=== PATIENT | female | born 1990 | race Caucasian/White ===

== ENCOUNTER 2018-03-30 14:37 | Emergency (ER) | END 2018-03-30 17:26 | disposition home or self-care (01) ==

== ENCOUNTER 2018-04-05 10:06 | Emergency (ER) | END 2018-04-05 12:45 | disposition home or self-care (01) ==

== ENCOUNTER 2018-05-02 08:51 | Emergency (ER) | END 2018-05-02 12:47 | disposition home or self-care (01) ==

== ENCOUNTER 2018-08-21 10:39 | Inpatient (IN) | payer OTHER ==
[~2018-08-21] VITALS: Ht 152.4 cm; Wt 74.7 kg
[~2018-08-21 10:39] MED LIST: ACET500C5 PO; DOXY1TAB3 PO; ELEC100080 PO; FAMO-96 PO; HYDR-3498 PO; METO10TA92 PO; NAPR-688 PO; ONDA4TAB35 PO
--- NOTE | 2018-08-21 13:21 | TRIAGE ---
OB Triage Datetime Report Generated by CPN: 08/21/2018 13:20 Datetime: 08/21/2018 10:44 Assessment Type: Triage Maternal Assessment Level of Consciousness: Fully Conscious DTR's/Clonus: DTRs 2+; No Clonus Headache: Denies Blurred Vision: No Respiratory Effort: Unlabored; Regular Rhythm; Equal Expansion Breath Sounds, Left: Clear and Equal Breath Sounds, Right: Clear and Equal Nausea/Vomiting: Denies RUQ Epigastric Pain: Denies Lower Extremities Edema: None Degree: None Upper Extremities Edema: None Degree: None Facial Edema: None Fall Risk Assessment History of Falling: (0) No Secondary Diagnosis: (0) No Ambulatory Aid: (0) Bedrest/Nurse Assist IV Therapy: (0) No Gait: (0) Normal/Bedrest/Immobile Mental Status: (0) Oriented to Own Ability Fall Score: 0 Fall Risk Score Definition: No Risk: No action required Datetime: 08/21/2018 10:43 EGA: 25.6 Datetime: 08/21/2018 10:40 Time of Arrival: 08/21/2018 10:40 Arrived By: Ambulatory Arrived From: Home Chief Complaint: PT CAME IN C/O UC'S SINCE MONDAY DENIES ANY OTHER PROBLEM ANS SHE STATED THAT SHE DIDNT CAME BECAUSE SHE THOUGHT THAT HER PAIN WAS GOING TO GO AWAY Movement: Present Contractions: Regular Time Contractions Began: 08/17/2018 12:00 Contractions: 5 MIN Rupture of Membranes: Denies Vaginal Discharge: Denies Recent Sexual Intercouse: Denies Abdominal Trauma: Not Applicable Additional Patient Complaints: NONE Time Provider Notified: 08/21/2018 10:43 Provider Notified: ASHLEY
--- NOTE | 2018-08-21 13:36 | HP ---
Date/Time of Note Date/Time of Note DATE: 08/21/18 TIME: 13:34 OB - History Hx of Present Free Text/Dictation @25+wsk GA with Right CVA tenderness and pelvic and back pain : 3 Para: 1 Care: Good Care Ultrasounds: Normal mid trimester US Obstetrical Complications: None Medical Complications: None Past Family/Social History * Past Medical, Surgical, Family and Obstetric Histories reviewed from chart. OB Admission Exam Physical Exam Abdomen: WNL Extremities: Normal Cervical Dilatation: None Effacement: 0% Membranes: Intact Heart Rate: 140's Accelerations: Accelerations Present Decelerations: No Decelerations Varibility: Moderate Contractions on Admission: None OB Assessment/Plan Reason for admission: observation Plan: Expectant Management Other plan: Ancef IV hydration Close monitoring Pain management will follow up on the patient OSCAR MERINO M.D. Aug 21, 2018 13:36
[2018-08-21] MEDS ORDERED: CEFAZOLIN 2 GM/50 ML (PMX) 50 ML IVPB SCH (14:00)
[2018-08-21] MEDS ORDERED: ONDANSETRON 4 MG INJ IV PRN (14:00)
[2018-08-21] MEDS: ACETAMINOPHEN 325 MG TAB PO PRN ×2 (14:12→22:35)
[2018-08-21] MEDS: LACTATED RINGER'S 1,000 ML IV SCH ×2 (14:43→21:15)
[2018-08-21] MEDS: CEFAZOLIN 2 GM/50 ML (PMX) 50 ML IVPB SCH (22:31)
[2018-08-22] MEDS: LACTATED RINGER'S 1,000 ML IV SCH ×2 (05:36→14:08)
[2018-08-22] MEDS: CEFAZOLIN 2 GM/50 ML (PMX) 50 ML IVPB SCH ×3 (05:36→22:35)
[2018-08-22] MEDS: FERROUS SULFATE (EC) 325 MG TAB PO SCH (08:13)
[2018-08-22] MEDS: PRENATAL VITAMIN PO SCH (08:13)
[2018-08-22] MEDS: ACETAMINOPHEN 325 MG TAB PO PRN ×2 (08:13→14:08)
--- NOTE | 2018-08-22 12:27 | QN ---
Documentation Comment patient seen and evaluated complains of left flank pain which has improved since admission vs stable afebrile ab gravid nt left cva tenderness extremity no edema no calf tenderness a/ iup at 25 wks ga, admitted for uti currently on antibiotic p/ renal sono today f/u urine culture DARIAN RAMIREZ MD Aug 22, 2018 12:27
[2018-08-23] MEDS: LACTATED RINGER'S 1,000 ML IV SCH ×2 (00:41→09:19)
[2018-08-23] MEDS: CEFAZOLIN 2 GM/50 ML (PMX) 50 ML IVPB SCH ×2 (06:10→14:13)
[2018-08-23] MEDS: FERROUS SULFATE (EC) 325 MG TAB PO SCH (09:17)
[2018-08-23] MEDS: PRENATAL VITAMIN PO SCH (09:17)
--- NOTE | 2018-08-23 13:38 | QN ---
Documentation Comment patient seen and evaluated no complaints vs stable afebrile ab gravid nt extremity no edema no calf tenderness a/ iup at 25 wks ga, admitted for uti/ bl hydronephrosis, improved since admission p/ discharge home today wtih DARIAN Quintanilla MD Aug 23, 2018 13:38
--- NOTE | 2018-08-23 18:04 | DS ---
DATE OF ADMISSION: 08/21/2018 DATE OF DISCHARGE: 08/23/2018 PRIMARY DIAGNOSES: 1. Intrauterine at 25 weeks' gestational age. 2. Urinary tract infection. 3. Bilateral hydronephrosis. 4. Undelivered. PROCEDURE: None. CONDITION ON DISCHARGE: Stable. ACTIVITY: As tolerated. DIET: Regular. MEDICATIONS ON DISCHARGE: Keflex 500 mg p.o. t.i.d., #21. DISCHARGE SUMMARY: Ms. Kylee Kat was admitted on 08/21/2018 secondary to flank pain and symptoms of urinary tract infection. She was started on Ancef for antibiotics and she received a renal ultra sound with findings of bilateral hydronephrosis. Her urine culture came back with gram-positive orga nisms. She will be discharged on the above medications and follow up in the office in 1 week. Dictated By: DARIAN ALFREDO/GARRETT Conf#: [id number] DID#: [id number]
== END 2018-08-23 15:35 | disposition home or self-care (01) | DRG 832 ==
LOC: L-D 10:39 → OBT 10:39 → L-D 13:11 → OBT 13:36 → PP1 08-22 01:03
PROVIDERS: ADMIT Obstetrics & Gynecology; ATTEND Obstetrics & Gynecology
DX: O23.42 Unspecified infection of urinary tract in pregnancy, second trimester (principal); N13.30 Unspecified hydronephrosis; O99.89 Other specified diseases and conditions complicating pregnancy, childbirth and the puerperium; Z3A.25 25 weeks gestation of pregnancy
CPT/HCPCS: 76775; 76815; 76817; 80053; 81001; 81003; 85025; 87086; G0463; J0690; J2405; J7120

== ENCOUNTER 2018-09-26 14:50 | Outpatient (CLI) | payer OTHER ==
[~2018-09-26] VITALS: Ht 152.4 cm; Wt 77.5 kg
[2018-09-26 15:24] VITALS: BP 111/70; PULSE 92; Ht 152.4 cm; Wt 77.5 kg
[2018-09-26] MEDS ORDERED: PNV11TAB PO (15:26)
--- NOTE | 2018-09-26 17:08 | PN ---
Triage Information Date/Time Reason for visit: Abd/pelvic pain Weeks of Gestation 31 weeks /Para -0-0-1 Diabetes: none Hypertention: none Objective Vital Signs Date Temp Pulse Resp B/P (MAP) Pulse Ox O2 O2 Flow FiO2 Time Delivery Rate 09/26/18 98.2 92 111/70 15:24 (84) Heart Rate: 130's Contractions: None Results/Medications Results 24 hrs Laboratory Tests Test 09/26/18 15:30 Urine Color YELLOW Urine Clarity SLIGHTLY CLOUDY A Urine pH 7.0 Urine Specific [place] 1.023 Urine Ketones NEGATIVE Urine Nitrite NEGATIVE Urine Bilirubin NEGATIVE Urine Urobilinogen NEGATIVE Urine Leukocyte Esterase NEGATIVE Urine Microscopic RBC 0 Urine Microscopic WBC 2 Urine Squamous Epithelial Cells FEW Urine Mucus FEW A Urine Hemoglobin NEGATIVE Urine Glucose NEGATIVE Urine Total Protein NEGATIVE Disposition: Discharge Assessment/Plan 28 years old 2 para 1-0-0-1 with single intrauterine at 31 weeks with a NAVARRO of 11/28/2018 complaining of abdominal pain. She states good movement. She denies nausea, vomiting, shortness of breath, chest pain, headache, visual changes, vaginal bleeding or LOF. -FHR: No sign of metabolic acidosis- Category I -Contractions: None -Unremarkable exam -Normal urinalysis -Ultrasound performed: Normal CLOVER-16 -Symptoms and sign of labor, preeclampsia, kick count discussed with patient, she voiced understanding. All of her questions answered. -Patient was discharged home in stable condition with the appropriate discharge instructions provided. I would like patient to have close follow-up with her primary physician or outpatient clinic in 1-2 days or return to triage for worsening symptoms or any other urgent concerns. INDRA EDMONDS September 26, 2018 17:08
--- NOTE | 2018-09-26 17:43 | TRIAGE ---
OB Triage Datetime Report Generated by CPN: 09/26/2018 17:43 Datetime: 09/26/2018 16:35 Stage of : OB Triage Datetime: 09/26/2018 16:21 Labor Evaluation Frequency: X2 Monitor Mode: External Duration (sec)2399: 50-60 Quality: Mild Pattern: Normal: <= 5 Contractions in 10 Minutes Resting Tone Panaca: Relaxed Heart Rate FHR Baseline Rate: 135 Monitor Mode: External US Variability: Moderate 6-25 bpm Accelerations: 10X10 Decelerations: None Category: Category I Pain Assessment Pain Scale: 5 Pain Presence: Intermittent Pain Type: Ache Pain Location: Back Pain Goal: 3 Pain Relief Measures: Comfort Measures Datetime: 09/26/2018 15:52 Stage of : OB Triage Datetime: 09/26/2018 15:20 Stage of : OB Triage Assessment Type: Triage Maternal Assessment Level of Consciousness: Fully Conscious DTR's/Clonus: DTRs 2+; No Clonus Blurred Vision: No Respiratory Effort: Unlabored; Regular Rhythm; Equal Expansion Breath Sounds, Left: Clear and Equal Breath Sounds, Right: Clear and Equal Nausea/Vomiting: Denies RUQ Epigastric Pain: Denies Facial Edema: None Temperature Route: Axillary Fall Risk Assessment History of Falling: (0) No Secondary Diagnosis: (0) No Ambulatory Aid: (0) Bedrest/Nurse Assist IV Therapy: (0) No Gait: (0) Normal/Bedrest/Immobile Mental Status: (0) Oriented to Own Ability Fall Score: 0 Fall Risk Score Definition: No Risk: No action required Labor Evaluation Frequency: X1 Monitor Mode: External Duration (sec)2399: 50 Quality: Mild Pattern: Normal: <= 5 Contractions in 10 Minutes Resting Tone Panaca: Relaxed Heart Rate FHR Baseline Rate: 140 Monitor Mode: External US Variability: Moderate 6-25 bpm Accelerations: 10X10 Decelerations: None Category: Category I Pain Assessment Pain Scale: 8 Pain Presence: Intermittent Pain Type: Cramping Pain Location: Abdomen; Back Pain Goal: 3 Pain Relief Measures: Comfort Measures Datetime: 09/26/2018 15:19 Time of Arrival: 09/26/2018 14:45 EGA: 31.0 Arrived By: Ambulatory Chief Complaint: C/O ABDOMINAL PAIN SINCE THIS MORNING, DENIES BLEEDING OR LEAKING Movement: Present Contractions: Denies/Absent Rupture of Membranes: Denies Vaginal Bleeding: None Vaginal Discharge: Denies Recent Sexual Intercouse: Denies Abdominal Trauma: Not Applicable Patient Complaints: Cramping; Back Pain; Headache Time Provider Notified: 09/26/2018 15:52 Provider Notified: HADADIAN Initial Plan: MONITOR, u/a c_s, edil Datetime: 08/23/2018 10:05 Pattern: Normal: <= 5 Contractions in 10 Minutes Resting Tone Panaca: Relaxed Contraction Comments: no uc Heart Rate FHR Baseline Rate: 135 Monitor Mode: External US Variability: Moderate 6-25 bpm Accelerations: 15X15 Decelerations: None Category: Category I Comments: reactive nst Pain Presence: None/Denies Pain Type: N/A Datetime: 08/23/2018 07:40 Assessment Type: Ongoing Assessment Maternal Assessment Level of Consciousness: Fully Conscious DTR's/Clonus: DTRs 2+; No Clonus Headache: Denies Blurred Vision: No Respiratory Effort: Unlabored; Regular Rhythm; Equal Expansion Breath Sounds, Left: Clear and Equal Breath Sounds, Right: Clear and Equal Nausea/Vomiting: Denies RUQ Epigastric Pain: Denies Lower Extremities Edema: None Degree: None Upper Extremities Edema: None Degree: None Facial Edema: None Fall Risk Assessment History of Falling: (0) No Secondary Diagnosis: (0) No Ambulatory Aid: (0) Bedrest/Nurse Assist IV Therapy: (20) Yes Gait: (0) Normal/Bedrest/Immobile Mental Status: (0) Oriented to Own Ability Fall Score: 20 Fall Risk Score Definition: No Risk: No action required Datetime: 08/23/2018 07:24 Stage of : Antepartum Datetime: 08/23/2018 06:07 Stage of : Antepartum Temperature Route: Oral Pain Assessment Pain Scale: 0 Pain Presence: None/Denies Pain Goal: 0 Datetime: 08/23/2018 00:37 Stage of : Antepartum Temperature Route: Oral Pain Assessment Pain Scale: 0 Pain Presence: None/Denies Pain Goal: 0 Datetime: 08/22/2018 22:32 Labor Evaluation Frequency: none Monitor Mode: External Resting Tone Panaca: Relaxed Heart Rate FHR Baseline Rate: 135 Monitor Mode: External US FHR Baseline Changes: No Baseline Change Variability: Moderate 6-25 bpm Accelerations: 15X15 Decelerations: Variable Comments: FHR appropriate for GA. FHR reassuring. EFM off. Datetime: 08/22/2018 21:04 Assessment Type: Ongoing Assessment Maternal Assessment Level of Consciousness: Fully Conscious DTR's/Clonus: DTRs 2+; No Clonus Headache: Denies Blurred Vision: No Respiratory Effort: Unlabored; Regular Rhythm; Equal Expansion Breath Sounds, Left: Clear and Equal Breath Sounds, Right: Clear and Equal Nausea/Vomiting: Denies RUQ Epigastric Pain: Denies Lower Extremities Edema: None Degree: None Upper Extremities Edema: None Degree: None Facial Edema: None Fall Risk Assessment History of Falling: (0) No Secondary Diagnosis: (0) No Ambulatory Aid: (0) Bedrest/Nurse Assist IV Therapy: (20) Yes Gait: (0) Normal/Bedrest/Immobile Mental Status: (0) Oriented to Own Ability Fall Score: 20 Fall Risk Score Definition: No Risk: No action required Datetime: 08/22/2018 21:02 Stage of : Antepartum Temperature Route: Oral Pain Assessment Pain Scale: 0 Pain Presence: None/Denies Pain Goal: 0 Datetime: 08/22/2018 21:01 Comments: EFM on. +FM noted. Datetime: 08/22/2018 18:02 Stage of : Antepartum Maternal Assessment Level of Consciousness: Fully Conscious Headache: Denies Nausea/Vomiting: Denies RUQ Epigastric Pain: Denies Labor Evaluation Frequency: 0/hr Resting Tone Panaca: Relaxed Pain Presence: Constant Vaginal Bleeding: None Datetime: 08/22/2018 17:06 Stage of : Antepartum Maternal Assessment Level of Consciousness: Fully Conscious Headache: Denies Nausea/Vomiting: Denies RUQ Epigastric Pain: Denies Labor Evaluation Frequency: 0/hr Resting Tone Panaca: Relaxed Pain Assessment Pain Scale: 1 Pain Presence: Constant Vaginal Bleeding: None Datetime: 08/22/2018 16:51 Pain Assessment Pain Scale: 1 Pain Presence: Constant Pain Assessment Comments: pt. states tylenol is effective for rt. flank pain Datetime: 08/22/2018 16:02 Stage of : Antepartum Maternal Assessment Level of Consciousness: Fully Conscious Headache: Denies Nausea/Vomiting: Denies RUQ Epigastric Pain: Denies Labor Evaluation Frequency: 0/hr Resting Tone Panaca: Relaxed Pain Assessment Pain Scale: 1 Pain Presence: Constant Vaginal Bleeding: None Datetime: 08/22/2018 15:30 Stage of : Antepartum Maternal Assessment Level of Consciousness: Fully Conscious Headache: Denies Nausea/Vomiting: Denies RUQ Epigastric Pain: Denies Labor Evaluation Frequency: 0/hr Resting Tone Panaca: Relaxed Pain Assessment Pain Scale: 1 Pain Presence: Constant Vaginal Bleeding: None Datetime: 08/22/2018 14:31 Pain Assessment Pain Scale: 2 Pain Presence: Constant Pain Relief Measures: Comfort Measures Datetime: 08/22/2018 14:00 Pain Assessment Pain Scale: 5 Pain Presence: Constant Pain Location: Right Flank Pain Relief Measures: Pain Medication Given Datetime: 08/22/2018 13:00 Stage of : Antepartum Maternal Assessment Level of Consciousness: Fully Conscious Headache: Denies Nausea/Vomiting: Denies RUQ Epigastric Pain: Denies Labor Evaluation Frequency: 0/hr Resting Tone Panaca: Relaxed Pain Assessment Pain Scale: 1 Pain Presence: Constant Vaginal Bleeding: None Datetime: 08/22/2018 12:00 Stage of : Antepartum Maternal Assessment Level of Consciousness: Fully Conscious Headache: Denies Nausea/Vomiting: Denies RUQ Epigastric Pain: Denies Labor Evaluation Frequency: 0/hr Resting Tone Panaca: Relaxed Contraction Comments: pt. denies uc's Comments: pt. acknowledges movement Pain Assessment Pain Scale: 1 Pain Presence: Constant Pain Type: Ache Pain Location: Right Flank Pain Relief Measures: Comfort Measures Vaginal Bleeding: None Datetime: 08/22/2018 11:52 Maternal Assessment Level of Consciousness: Fully Conscious Headache: Denies Blurred Vision: No Respiratory Effort: Unlabored Nausea/Vomiting: Denies RUQ Epigastric Pain: Denies Pain Presence: None/Denies Datetime: 08/22/2018 11:17 Pain Presence: None/Denies Datetime: 08/22/2018 11:02 Stage of : Antepartum Labor Evaluation Frequency: occassional Monitor Mode: External Duration (sec)2399: 60 Quality: Mild Heart Rate FHR Baseline Rate: 125 Monitor Mode: External US Variability: Moderate 6-25 bpm Accelerations: 15X15 Decelerations: None Datetime: 08/22/2018 10:21 Monitor Mode: External Resting Tone Panaca: Relaxed Monitor Mode: External US Datetime: 08/22/2018 10:20 Pain Presence: Constant Pain Type: Ache Pain Location: Right Flank Pain Assessment Comments: pt. states she is comfortable and talking on her cellphone Datetime: 08/22/2018 10:11 Stage of : Antepartum Maternal Assessment Level of Consciousness: Fully Conscious Headache: Denies Nausea/Vomiting: Denies RUQ Epigastric Pain: Denies Resting Tone Panaca: Relaxed Pain Assessment Pain Scale: 1 Pain Presence: Constant Pain Type: Dull Pain Location: Right Flank Pain Relief Measures: Comfort Measures Vaginal Bleeding: None Datetime: 08/22/2018 09:36 Maternal Assessment Level of Consciousness: Fully Conscious Headache: Denies Blurred Vision: No Respiratory Effort: Unlabored Nausea/Vomiting: Denies RUQ Epigastric Pain: Denies Pain Assessment Pain Scale: 1 Pain Presence: Constant Pain Location: Right Flank Pain Assessment Comments: pt. states tylenol effective for pain Datetime: 08/22/2018 09:03 Stage of : Antepartum Resting Tone Panaca: Relaxed Contraction Comments: 0/hr per pt. Datetime: 08/22/2018 08:14 Nausea/Vomiting: Hx of Nausea/Vomiting Datetime: 08/22/2018 07:29 Breath Sounds, Left: Clear and Equal Breath Sounds, Right: Clear and Equal Pain Location: Right Flank Datetime: 08/22/2018 07:28 Maternal Assessment Level of Consciousness: Fully Conscious Headache: Denies Blurred Vision: No Respiratory Effort: Unlabored Nausea/Vomiting: Hx of Nausea/Vomiting RUQ Epigastric Pain: Denies Pain Assessment Pain Scale: 7 Pain Presence: Constant Pain Location: Back Datetime: 08/22/2018 07:10 Stage of : Antepartum Assessment Type: Ongoing Assessment Respiratory Effort: Unlabored Pain Assessment Comments: pt. states pain 7/10 rt. side cva, pt. states she "threw up" tylenol give n in triage. iv infusing Datetime: 08/22/2018 05:38 Stage of : Antepartum Maternal Assessment Level of Consciousness: Fully Conscious Headache: Denies Blurred Vision: No Temperature Route: Oral Pain Presence: None/Denies (Annotations: PT DENIES ANY DISCOMFORT OR FEELING ANY UC'S,STATED BABY M OVING.) Datetime: 08/22/2018 01:17 Stage of : Antepartum Temperature Route: Oral Datetime: 08/22/2018 00:57 Stage of : Antepartum Datetime: 08/21/2018 22:36 Temperature Route: Oral Pain Assessment Pain Scale: 10 Pain Presence: Constant Pain Type: Pressure Pain Location: Head Pain Goal: 0 Pain Relief Measures: Pain Medication Given Datetime: 08/21/2018 21:23 Labor Evaluation Frequency: none Monitor Mode: External Resting Tone Panaca: Relaxed Heart Rate FHR Baseline Rate: 150 Monitor Mode: External US FHR Baseline Changes: No Baseline Change Variability: Moderate 6-25 bpm Accelerations: 15X15 Decelerations: None Comments: NST reassuring and appropriate for GA. +FM noted. EFM off. Datetime: 08/21/2018 21:02 Assessment Type: Ongoing Assessment Maternal Assessment Level of Consciousness: Fully Conscious DTR's/Clonus: DTRs 2+; No Clonus Headache: Denies Blurred Vision: No Respiratory Effort: Unlabored; Regular Rhythm; Equal Expansion Breath Sounds, Left: Clear and Equal Breath Sounds, Right: Clear and Equal Nausea/Vomiting: Denies RUQ Epigastric Pain: Denies Lower Extremities Edema: None Degree: None Upper Extremities Edema: None Degree: None Facial Edema: None Fall Risk Assessment History of Falling: (0) No Secondary Diagnosis: (0) No Ambulatory Aid: (0) Bedrest/Nurse Assist IV Therapy: (20) Yes Gait: (0) Normal/Bedrest/Immobile Mental Status: (0) Oriented to Own Ability Fall Score: 20 Fall Risk Score Definition: No Risk: No action required Datetime: 08/21/2018 21:00 Comments: EFM on. +FM noted. Datetime: 08/21/2018 20:55 Stage of : Antepartum Temperature Route: Oral Pain Assessment Pain Scale: 0 Pain Presence: None/Denies Pain Goal: 0 Datetime: 08/21/2018 18:53 Labor Evaluation Frequency: 0 Monitor Mode: External Heart Rate FHR Baseline Rate: 145 Monitor Mode: External US FHR Baseline Changes: No Baseline Change Variability: Moderate 6-25 bpm Accelerations: 15X15 Decelerations: None Category: Category I Datetime: 08/21/2018 18:00 Labor Evaluation Frequency: 0 Monitor Mode: External Heart Rate FHR Baseline Rate: 140 Monitor Mode: External US FHR Baseline Changes: No Baseline Change Variability: Moderate 6-25 bpm Accelerations: 15X15 Decelerations: None Category: Category I Datetime: 08/21/2018 17:00 Labor Evaluation Frequency: 0 Monitor Mode: External Heart Rate FHR Baseline Rate: 140 Monitor Mode: External US FHR Baseline Changes: No Baseline Change Variability: Moderate 6-25 bpm Accelerations: 15X15 Decelerations: None Category: Category I Datetime: 08/21/2018 16:00 Labor Evaluation Frequency: 0 Monitor Mode: External Heart Rate FHR Baseline Rate: 135 Monitor Mode: External US FHR Baseline Changes: No Baseline Change Variability: Moderate 6-25 bpm Accelerations: 15X15 Decelerations: None Category: Category I Datetime: 08/21/2018 15:00 Labor Evaluation Frequency: 0 Monitor Mode: External Heart Rate FHR Baseline Rate: 135 Monitor Mode: External US FHR Baseline Changes: No Baseline Change Variability: Moderate 6-25 bpm Accelerations: 15X15 Decelerations: None Category: Category I Datetime: 08/21/2018 14:12 Assessment Type: Admission Assessment Vaginal Bleeding: None Maternal Assessment Level of Consciousness: Fully Conscious DTR's/Clonus: DTRs 2+; No Clonus Headache: Generalized Blurred Vision: No Respiratory Effort: Unlabored; Regular Rhythm; Equal Expansion Breath Sounds, Left: Clear and Equal Breath Sounds, Right: Clear and Equal Nausea/Vomiting: Denies RUQ Epigastric Pain: Denies Lower Extremities Edema: None Degree: None Upper Extremities Edema: None Facial Edema: None Fall Risk Assessment History of Falling: (0) No Secondary Diagnosis: (0) No Ambulatory Aid: (0) Bedrest/Nurse Assist IV Therapy: (20) Yes Gait: (0) Normal/Bedrest/Immobile Mental Status: (0) Oriented to Own Ability Fall Score: 20 Fall Risk Score Definition: No Risk: No action required Pain Assessment Pain Scale: 6 Pain Presence: Constant Pain Type: Pressure Pain Location: Back Pain Goal: 0 Datetime: 08/21/2018 14:00 Labor Evaluation Frequency: 0 Monitor Mode: External Heart Rate FHR Baseline Rate: 135 Monitor Mode: External US FHR Baseline Changes: No Baseline Change Variability: Moderate 6-25 bpm Accelerations: 15X15 Decelerations: None Category: Category I Datetime: 08/21/2018 13:38 Stage of : Antepartum Datetime: 08/21/2018 13:00 Stage of : OB Triage Maternal Assessment Level of Consciousness: Fully Conscious DTR's/Clonus: DTRs 1+ Headache: Denies Nausea/Vomiting: Denies RUQ Epigastric Pain: Denies Labor Evaluation Frequency: NONE Monitor Mode: External Resting Tone Panaca: Relaxed Heart Rate FHR Baseline Rate: 135 Monitor Mode: External US Variability: Moderate 6-25 bpm Accelerations: 15X15 Decelerations: None Category: Category I Pain Assessment Pain Scale: 7 Pain Presence: Intermittent Pain Type: Cramping Pain Location: Back Pain Goal: 3 Vaginal Exam Membrane Status: Intact Datetime: 08/21/2018 12:37 Maternal Assessment Level of Consciousness: Fully Conscious DTR's/Clonus: DTRs 1+ Headache: Denies Blurred Vision: No Nausea/Vomiting: Denies RUQ Epigastric Pain: Denies Facial Edema: None Labor Evaluation Frequency: NONE Monitor Mode: External Resting Tone Panaca: Relaxed Heart Rate FHR Baseline Rate: 135 Monitor Mode: External US Variability: Moderate 6-25 bpm Accelerations: 15X15 Decelerations: None Category: Category I Pain Assessment Pain Scale: 7 Pain Presence: Intermittent Pain Type: Cramping Pain Location: Back Pain Goal: 3 Vaginal Exam Membrane Status: Intact Datetime: 08/21/2018 12:00 Stage of : OB Triage Maternal Assessment Level of Consciousness: Fully Conscious DTR's/Clonus: DTRs 1+ Headache: Denies Nausea/Vomiting: Denies RUQ Epigastric Pain: Denies Labor Evaluation Frequency: NONE Monitor Mode: External Resting Tone Panaca: Relaxed Heart Rate FHR Baseline Rate: 135 Monitor Mode: External US Variability: Moderate 6-25 bpm Accelerations: 15X15 Decelerations: None Category: Category I Pain Assessment Pain Scale: 7 Pain Presence: Intermittent Pain Type: Cramping Pain Location: Back Pain Goal: 3 Vaginal Exam Membrane Status: Intact Datetime: 08/21/2018 11:00 Stage of : OB Triage Maternal Assessment Level of Consciousness: Fully Conscious DTR's/Clonus: DTRs 1+ Headache: Denies Nausea/Vomiting: Denies RUQ Epigastric Pain: Denies Labor Evaluation Frequency: NONE Monitor Mode: External Resting Tone Panaca: Relaxed Heart Rate FHR Baseline Rate: 135 Monitor Mode: External US Variability: Moderate 6-25 bpm Accelerations: 15X15 Decelerations: None Pain Assessment Pain Scale: 7 Pain Presence: Intermittent Pain Type: Cramping Pain Location: Back Pain Goal: 3 Vaginal Exam Membrane Status: Intact Datetime: 08/21/2018 10:44 Fall Score: 0 Fall Risk Score Definition: No Risk: No action required Datetime: 08/21/2018 10:43 Time of Arrival: 08/21/2018 13:45 EGA: 25.6 Arrived By: Ambulatory Arrived From: Home
== END 2018-09-26 16:50 | disposition home or self-care (01) ==
LOC: OBT 14:50 → L-D 14:50 → OBT 16:50
PROVIDERS: ATTEND Obstetrics & Gynecology
DX: O26.893 Other specified pregnancy related conditions, third trimester (principal); Z3A.31 31 weeks gestation of pregnancy; R10.2 Pelvic and perineal pain
CPT/HCPCS: 76815; 81001; 87086; Z7500; 81003; G0463

== ENCOUNTER 2018-10-26 11:15 | Outpatient (CLI) | payer OTHER ==
[~2018-10-26] VITALS: Ht 152.4 cm; Wt 81.1 kg
[~2018-10-26 11:15] MED LIST changes: -ACET500C5 PO; -DOXY1TAB3 PO; -ELEC100080 PO; -FAMO-96 PO; -HYDR-3498 PO; -METO10TA92 PO; -NAPR-688 PO; -ONDA4TAB35 PO; +PNV11TAB PO
[2018-10-26 11:41] VITALS: BP 115/78; PULSE 80; RESP 18; Ht 152.4 cm; Wt 81.1 kg
[2018-10-26] MEDS ORDERED: TERBUTALINE 1 MG/ML INJ SC ONE (12:00)
[2018-10-26] MEDS ORDERED: LACTATED RINGER'S 1,000 ML IV SCH (12:00)
[2018-10-26] MEDS ORDERED: ACETAMINOPHEN 325 MG TAB PO ONE (12:30)
--- NOTE | 2018-10-26 18:11 | TRIAGE ---
OB Triage Datetime Report Generated by CPN: 10/26/2018 18:11 Datetime: 10/26/2018 15:55 Stage of : OB Triage Datetime: 10/26/2018 15:40 Labor Evaluation Frequency: 0 Monitor Mode: External Pattern: Normal: <= 5 Contractions in 10 Minutes Resting Tone [place]: Relaxed Heart Rate FHR Baseline Rate: 135 Monitor Mode: External US Variability: Moderate 6-25 bpm Accelerations: 10X10 Decelerations: None Category: Category I Pain Assessment Pain Scale: 0 Pain Presence: None/Denies Pain Type: N/A Pain Goal: 3 Pain Relief Measures: Comfort Measures Datetime: 10/26/2018 14:28 Labor Evaluation Frequency: 0 Monitor Mode: External Pattern: Normal: <= 5 Contractions in 10 Minutes Resting Tone [place]: Relaxed Heart Rate FHR Baseline Rate: 145 Monitor Mode: External US Variability: Moderate 6-25 bpm Accelerations: 10X10 Decelerations: None Category: Category I Pain Assessment Pain Scale: 0 Pain Presence: None/Denies Pain Type: N/A Pain Goal: 3 Pain Relief Measures: Comfort Measures Datetime: 10/26/2018 13:17 Labor Evaluation Frequency: irreg Monitor Mode: External Duration (sec)2399: 30-40 Pattern: Normal: <= 5 Contractions in 10 Minutes Resting Tone [place]: Relaxed Heart Rate FHR Baseline Rate: 135 Monitor Mode: External US Variability: Moderate 6-25 bpm Accelerations: 10X10 Decelerations: None Category: Category I Pain Assessment Pain Scale: 0 Pain Presence: None/Denies Pain Type: N/A Pain Goal: 3 Pain Relief Measures: Comfort Measures Pain Assessment Comments: states pain has gone away Datetime: 10/26/2018 12:32 Labor Evaluation Frequency: 0 Monitor Mode: External Pattern: Normal: <= 5 Contractions in 10 Minutes Resting Tone [place]: Relaxed Heart Rate FHR Baseline Rate: 135 Monitor Mode: External US Variability: Moderate 6-25 bpm Accelerations: 10X10 Decelerations: None Category: Category I Pain Assessment Pain Scale: 5 Pain Presence: Constant Pain Type: Ache Pain Location: Back Pain Goal: 3 Pain Relief Measures: Comfort Measures Datetime: 10/26/2018 11:47 Stage of : OB Triage Datetime: 10/26/2018 11:32 EGA: 35.2 Datetime: 10/26/2018 11:30 Stage of : OB Triage Assessment Type: Triage Maternal Assessment Level of Consciousness: Fully Conscious DTR's/Clonus: DTRs 2+; No Clonus Headache: Denies Blurred Vision: No Respiratory Effort: Unlabored; Regular Rhythm; Equal Expansion Breath Sounds, Left: Clear and Equal Breath Sounds, Right: Clear and Equal Nausea/Vomiting: Denies RUQ Epigastric Pain: Denies Facial Edema: None Temperature Route: Axillary Fall Risk Assessment History of Falling: (0) No Secondary Diagnosis: (0) No Ambulatory Aid: (0) Bedrest/Nurse Assist IV Therapy: (0) No Gait: (0) Normal/Bedrest/Immobile Mental Status: (0) Oriented to Own Ability Fall Score: 0 Fall Risk Score Definition: No Risk: No action required Labor Evaluation Frequency: X1 Monitor Mode: External Duration (sec)2399: 50 Pattern: Normal: <= 5 Contractions in 10 Minutes Resting Tone [place]: Relaxed Heart Rate FHR Baseline Rate: 135 Monitor Mode: External US Variability: Moderate 6-25 bpm Accelerations: None Decelerations: None Pain Assessment Pain Scale: 8 Pain Presence: Intermittent Pain Type: Cramping; Contraction Pain Location: Perineum Pain Goal: 3 Pain Relief Measures: Comfort Measures Datetime: 10/26/2018 11:29 Time of Arrival: 10/26/2018 11:10 EGA: 35.2 Arrived By: Ambulatory Arrived From: Home Chief Complaint: WAS SEEN IN CLINIC YESTERDAY WAS INSTRUCTED TO COME FOR EVALUATION, BUT FELT MELIZA R UNTIL TODAY. C/O CRAMPING Q 7 MIN THIS AM, DENIES BLEEDING OR LEAKING Movement: Present Contractions: Regular Contractions: 7 Rupture of Membranes: Denies Vaginal Bleeding: None Vaginal Discharge: Denies Recent Sexual Intercouse: Denies Abdominal Trauma: Not Applicable Patient Complaints: Contractions; Cramping Time Provider Notified: 10/26/2018 11:47 Provider Notified: ULYSSES Initial Plan: MONITOR, U/A C_S, Datetime: 09/26/2018 15:20 Fall Score: 0 Fall Risk Score Definition: No Risk: No action required Datetime: 09/26/2018 15:19 EGA: 31.0 Datetime: 08/23/2018 07:40 Fall Score: 20 Fall Risk Score Definition: No Risk: No action required Datetime: 08/22/2018 21:04 Fall Score: 20 Fall Risk Score Definition: No Risk: No action required Datetime: 08/21/2018 21:02 Fall Score: 20 Fall Risk Score Definition: No Risk: No action required Datetime: 08/21/2018 14:12 Fall Score: 20 Fall Risk Score Definition: No Risk: No action required Datetime: 08/21/2018 10:44 Fall Score: 0 Fall Risk Score Definition: No Risk: No action required Datetime: 08/21/2018 10:43 EGA: 25.6
--- NOTE | 2018-10-26 20:16 | PN ---
Triage Information Date/Time 10/26/18 Reason for visit: Uterine contractions Weeks of Gestation 35w2d /Para A1 Diabetes: none Hypertention: none Objective Vital Signs Date Temp Pulse Resp B/P (MAP) Pulse Ox O2 O2 Flow FiO2 Time Delivery Rate 10/26/18 98.4 80 18 115/78 11:41 (90) Heart Rate: 140's Heart Rate Comments CAT I tracing Contractions: >10 Minutes Apart Exam /-3 on 10/25/18 Results/Medications Results 24 hrs Laboratory Tests Test 10/26/18 11:30 Urine Color YELLOW Urine Clarity SLIGHTLY CLOUDY A Urine pH 7.0 Urine Specific [place] 1.023 Urine Ketones NEGATIVE Urine Nitrite NEGATIVE Urine Bilirubin NEGATIVE Urine Urobilinogen NEGATIVE Urine Leukocyte Esterase TRACE A Urine Microscopic RBC 0 Urine Microscopic WBC 2 Urine Squamous Epithelial Cells FEW Urine Bacteria FEW A Urine Mucus FEW A Urine Hemoglobin NEGATIVE Urine Glucose NEGATIVE Urine Total Protein NEGATIVE Medications terb x1, tyleniol 650mg IVhydration Imaging Results BPP8/8 CLOVER 15.8 Disposition: Discharge Assessment/Plan A IUP 35w2d R/O PTL resolved P discharge home with routine labor instructions LACY ARORA MD October 26, 2018 20:16
== END 2018-10-26 16:05 | disposition home or self-care (01) ==
LOC: OBT 11:15 → L-D 11:17 → OBT 16:05
PROVIDERS: ATTEND Obstetrics & Gynecology
DX: O62.9 Abnormality of forces of labor, unspecified (principal); Z3A.35 35 weeks gestation of pregnancy
CPT/HCPCS: 36415; 76818; 81001; 87086; 96360; 96361; 96372; J3105; J7120; Z7500; Z7610; G0463

== ENCOUNTER 2018-11-09 04:06 | Inpatient (IN) | payer OTHER ==
[~2018-11-09] VITALS: Ht 152.4 cm; Wt 81.6 kg
[2018-11-09 04:16] VITALS: BP 157/91; PULSE 79; RESP 17
[2018-11-09] MEDS ORDERED: LACTATED RINGER'S 1,000 ML IV PRN (04:23)
[2018-11-09] MEDS ORDERED: METHYLERGONOVINE 0.2 MG INJ IM PRN ×2 (04:30→20:30)
[2018-11-09] MEDS ORDERED: BUTORPHANOL 2 MG INJ IV PRN ×2 (04:30)
[2018-11-09] MEDS ORDERED: IBUPROFEN 600 MG TAB PO PRN (04:30)
[2018-11-09] MEDS ORDERED: LIDOCAINE 1% (MPF) 30 ML INJ INJ PRN (04:30)
[2018-11-09] MEDS ORDERED: CARBOPROST 250 MCG INJ IM PRN ×2 (04:30→20:30)
[2018-11-09] MEDS ORDERED: OXYTOCIN 30 UNITS/LR 500 ML IV PRN ×2 (04:30→20:30)
[2018-11-09] MEDS ORDERED: MISOPROSTOL 200 MCG TAB PR PRN ×2 (04:30→20:30)
[2018-11-09] MEDS ORDERED: MINERAL OIL LIGHT 10 ML VIAL TOP ONE (04:30)
[2018-11-09] MEDS ORDERED: OXYTOCIN 30 UNITS/LR 500 ML IV SCH ×3 (04:30→09:30)
--- NOTE | 2018-11-09 04:59 | TRIAGE ---
OB Triage Datetime Report Generated by CPN: 11/09/2018 04:59 Datetime: 11/09/2018 04:37 Membrane Status: Meconium Datetime: 11/09/2018 04:32 Stage of : OB Triage Labor Evaluation Frequency: 3-5 Monitor Mode: External Duration (sec)2399: 60-150 Quality: Mild Resting Tone [place]: Relaxed Heart Rate FHR Baseline Rate: 130 Monitor Mode: External US FHR Baseline Changes: No Baseline Change Variability: Moderate 6-25 bpm Accelerations: None Decelerations: None Category: Category I Vaginal Exam Dilatation (cms): 3.0 Effacement (%): 80 Station: -2 Exam By: E Ricardo Membrane Status: Ruptured Amniotic Fluid Color: Light Meconium Amniotic Fluid Amount: Large Amniotic Fluid Odor: Normal Vaginal Bleeding: None Pool: Positive Cervix, Consistency: Soft Cervix, Position: Posterior Presentation 'A': Cephalic Datetime: 11/09/2018 04:21 Time of Arrival: 11/09/2018 04:02 EGA: 37.2 Arrived By: Wheelchair Arrived From: Home Chief Complaint: TAB1 c/o srom at 0320 Movement: Absent Contractions: Denies/Absent Rupture of Membranes: Ruptured Vaginal Bleeding: None Vaginal Discharge: Present Recent Sexual Intercouse: Denies Abdominal Trauma: Not Applicable Patient Complaints: Other Initial Plan: EFM,SVE Datetime: 11/09/2018 04:11 Stage of : OB Triage Maternal Assessment Level of Consciousness: Keenly Alert, Responsive DTR's/Clonus: DTRs 2+; No Clonus Headache: Denies Blurred Vision: No Nausea/Vomiting: Denies RUQ Epigastric Pain: Denies Facial Edema: None Monitor Mode: External Resting Tone [place]: Relaxed Heart Rate FHR Baseline Rate: 130 Monitor Mode: External US Pain Assessment Pain Scale: 6 Pain Presence: Intermittent Pain Type: Pressure Membrane Status: Ruptured Amniotic Fluid Color: Clear Amniotic Fluid Amount: Large Amniotic Fluid Odor: Normal Pool: Positive Nitrazine: Positive Datetime: 10/26/2018 11:32 EGA: 35.2 Datetime: 10/26/2018 11:30 Fall Risk Assessment Fall Score: 0 Fall Risk Score Definition: No Risk: No action required Datetime: 10/26/2018 11:29 EGA: 35.2 Datetime: 09/26/2018 15:20 Fall Risk Assessment Fall Score: 0 Fall Risk Score Definition: No Risk: No action required Datetime: 09/26/2018 15:19 EGA: 31.0 Datetime: 08/23/2018 07:40 Fall Risk Assessment Fall Score: 20 Fall Risk Score Definition: No Risk: No action required Datetime: 08/22/2018 21:04 Fall Risk Assessment Fall Score: 20 Fall Risk Score Definition: No Risk: No action required Datetime: 08/21/2018 21:02 Fall Risk Assessment Fall Score: 20 Fall Risk Score Definition: No Risk: No action required Datetime: 08/21/2018 14:12 Fall Risk Assessment Fall Score: 20 Fall Risk Score Definition: No Risk: No action required Datetime: 08/21/2018 10:44 Fall Risk Assessment Fall Score: 0 Fall Risk Score Definition: No Risk: No action required Datetime: 08/21/2018 10:43 EGA: 25.6
[2018-11-09] MEDS ORDERED: FENTAnyl 2MCG/ML-ROPIV 0.2% 100 ML ONE (06:15)
--- NOTE | 2018-11-09 06:17 | PREAC ---
Date/Time of Note Date/Time of Note DATE: 11/09/18 TIME: 06:16 Anesthesia Eval and Record Evaluation Time Pre-Procedure Interview DATE: 11/09/18 TIME: 06:16 Age 28 Sex female NPO: 8 hrs Preoperative diagnosis Labor Pain Planned procedure Labor Epidural Past Medical History Past Medical History: Includes Pulm: Asthma Heme: Anemia : : (2), Para: (1), Gestational age: (37) Surgery & Anesthesia Issues No known issue Meds Anticoagulation: No Beta Anita within 24 hr: No Reason Beta Anita not given: Pt. not on B-Anita Reported Medications [id number] ( 19) 1 Each Tablet, 1 TAB PO DAILY, TAB 09/26/18 Current Medications Lactated Ringer's 1,000 ml @ 125 mls/hr Q8H IV ; Start 11/09/18 at 04:23 Butorphanol Tartrate (Stadol) 1 mg Q2H PRN IV .PAIN SCALE 1-5; Start 11/09/18 at 04:30 Butorphanol Tartrate (Stadol) 2 mg Q2H PRN IV .PAIN SCALE 6-10; Start 11/09/18 at 04:30 Lidocaine (Xylocaine 1% (Mpf)) 30 ml ONCE PRN INJ .EPISIOTOMY; Start 11/09/18 at 04:30 Oxytocin/Lactated Ringer's 500 ml @ 500 mls/hr ONCE POST IV ; Start 11/09/18 at 04:30 Oxytocin/Lactated Ringer's 500 ml @ 125 mls/hr POST IV ; Start 11/09/18 at 04:30 Ibuprofen (Motrin) 600 mg ONCE PRN PO .PAIN 1-5; Start 11/09/18 at 04:30 Lactated Ringer's 1,000 ml @ 2,000 mls/hr Q30M PRN IV .ANESTHESIA; Start 11/09/18 at 04:23 Oxytocin/Lactated Ringer's 500 ml @ 0 mls/hr ONCE PRN IV .VAGINAL BLEEDING; Start 11/09/18 at 04:30 Methylergonovine Maleate (Methergine) 0.2 mg ONCE PRN IM .VAGINAL BLEEDING; Start 11/09/18 at 04:30 Carboprost Tromethamine (Hemabate) 250 mcg ONCE PRN IM .VAGINAL BLEEDING; Start 11/09/18 at 04:30 Misoprostol (Cytotec) 1,000 mcg ONCE PRN [place] .VAGINAL BLEEDING; Start 11/09/18 at 04:30 Meds reviewed: Yes Allergies Coded Allergies: No Known Allergy (Verified , 11/09/18) Allergies Reviewed: Yes Labs/Studies Labs Reviewed: Reviewed by anesthesiologist Result Diagram: 11/09/18 0510 11/09/18 0510 Laboratory Tests 11/09/18 05:10 test: Positive Studies: ECG (n/a), CXR (n/a) Pre-procedure Exam Last vitals Vital Signs Date Temp Pulse Resp B/P (MAP) Pulse Ox O2 O2 Flow FiO2 Time Delivery Rate 11/09/18 97.6 79 17 157/91 Room Air 04:16 (113) Airway: Adequate mouth opening, Adequate thyromental dist Mallampati: Mallampati II Teeth: Normal Lung: Normal Heart: Normal ASA Physical Status ASA physical status: 2 Emergency: None Planned Anesthetic Neuraxial: Epidural Planned Pain Management Epidural Pre-operative Attestations Prior to commencing anesthesia and surgery, the patient was re-evaluated, there was verification of: *The patient's identity *The results of appropriate recent lab work and preoperative vital signs *The above evaluation not changing prior to induction *Anesthetic plan, risk benefits, alternative and complications discussed with patient/family; questions answered; patient/family understands, accepts and wish es to proceed. ERIN DÍAZ MD Nov 09, 2018 06:17
--- NOTE | 2018-11-09 06:19 | PAC ---
Date/Time of Note Date/Time of Note DATE: 11/09/18 TIME: 06:18 Post-Anesthesia Notes Post-Anesthesia Note Last documented vital signs Vital Signs Date Temp Pulse Resp B/P (MAP) Pulse Ox O2 O2 Flow FiO2 Time Delivery Rate 11/09/18 97.6 79 17 157/91 100 Room Air 06:16 (113) Activity: WNL Respiratory function: WNL Cardiovascular function: WNL Mental status: Baseline Pain reasonably controlled: Yes Hydration appropriate: Yes Nausea/Vomiting absent: Yes ERIN DÍAZ MD Nov 09, 2018 06:19
[2018-11-09] MEDS ORDERED: NALOXONE (0.4 MG/ML) INJ IV PRN (06:30)
[2018-11-09] MEDS: LACTATED RINGER'S 1,000 ML IV SCH ×3 (06:57→15:47)
[2018-11-09] MEDS: FENTAnyl 2MCG/ML-ROPIV 0.2% 100 ML BAG EPI SCH ×2 (08:00→15:13)
[2018-11-09] MEDS ORDERED: MINERAL OIL LIGHT 10 ML VIAL TOP PRN (09:00)
[2018-11-09] MEDS ORDERED: TERBUTALINE 1 ML ONE (11:28)
[2018-11-09] MEDS ORDERED: TERBUTALINE 1 MG/ML INJ SC PRN (11:40)
[2018-11-09] MEDS ORDERED: AMPICILLIN 2 GM/NS (PMX) 100 ML IVPB ONE (17:45)
[2018-11-09 18:40] VITALS: BP 128/60; PULSE 84; RESP 18
--- NOTE | 2018-11-09 18:48 | HP ---
Date/Time of Note Date/Time of Note DATE: 11/09/18 TIME: 18:40 OB - History Hx of Present Free Text/Dictation 27 y.o A1 at 37w2d with SROM in labor VE 3/80/-2 light mec fluid CAT I tracing GBS neg admitted for expectant management poss augmentation Chief Complaint: leaking fluid light green Estimated Due Date: Nov 28, 2018 : 3 Para: 1 Spontaneous : 1 Therapeutic : 0 Care: Other Ultrasounds: Other Obstetrical Complications: None Medical Complications: None Past Family/Social History * Past Medical, Surgical, Family and Obstetric Histories reviewed from chart. Blood Type: A+ Rubella: immune RPR/VDRL: Negative GBS Status: Negative HBsAG: Negative OB Admission Exam Vital Signs Vital Signs Vital Signs Date Temp Pulse Resp B/P (MAP) Pulse Ox O2 O2 Flow FiO2 Time Delivery Rate 11/09/18 97.6 79 17 157/91 Room Air 04:16 (113) Physical Exam HEENT: WNL Heart: Rhythm Normal Lungs: Clear, Equal Abdomen: WNL Extremities: Normal Reflexes: Normal Cervical Dilatation: 3cm Effacement: 75% Station: -2 Membranes: Ruptured Amniotic Fluid: Thin Meconium Heart Rate: 130's Accelerations: Accelerations Present Decelerations: No Decelerations Varibility: Moderate Contractions on Admission: < 5 Minutes Apart Intensity: Mild Last 72 hours Lab Results CBC & BMP 11/09/18 05:10 Liver Function Test 11/09/18 05:10 Alanine Aminotransferase (ALT/SGPT) 16 Albumin 3.1 L Alkaline Phosphatase 137 H Aspartate Amino Transf (AST/SGOT) 18 Direct Bilirubin 0.00 Total Protein 6.4 OB Assessment/Plan Other Assessment: A IUP 37w2d in early labor SROM P expectant management Plan: Other ( pitocin augmentation) LACY ARORA MD Nov 09, 2018 18:48
[2018-11-09 18:55] VITALS: BP 128/59; PULSE 85; RESP 19
--- NOTE | 2018-11-09 18:56 | LDN ---
Date/Time of Note Date/Time of Note DATE: 11/09/18 TIME: 18:52 Delivery Summary of normal male with relatively loose nuchal cord Weeks of Gestation 37w2d Placenta Delivered: Spontaneously, Intact & Complete Meconium: Light Episiotomy: No Perineal laceration: 1 Laceration repair: 000ch gut Anesthesia type: Epidural Estimated blood loss: 100 Sponge & Needle done & correct: Yes All needle counts correct: Yes Any foreign bodies felt in the: No Delivery Information Sex Infant Sex: male Apgars 1 Minute: 8 5 Minute: 9 Suctioning Nose & mouth suctioned at tj: Yes Delee suction performed: Yes Umbilical Cord Umbilical cord with: 3 Vessels Cord presentations: nuchal cord Nuchal cord present X: 1 Cord Blood was obtained: Yes Mother & Baby Disposition Disposition Mom & Baby to Maternity; Good: Yes Mom transferred to: Other () Baby to NICU: No LACY ARORA MD Nov 09, 2018 18:55
[2018-11-09 19:10] VITALS: BP 136/65; PULSE 93; RESP 19
[2018-11-09] MEDS ORDERED: OXYCODONE/ASPIRIN (4.88/325) TAB PO PRN ×2 (20:30)
[2018-11-09] MEDS ORDERED: WITCH HAZEL/GLYCERIN PAD PR PRN (20:30)
[2018-11-09] MEDS ORDERED: BENZOCAINE 20% 56 ML SPRAY TOP PRN (20:30)
[2018-11-09] MEDS ORDERED: ZOLPIDEM 5 MG TAB PO PRN (20:30)
[2018-11-09 20:40] VITALS: BP 134/65; PULSE 83; RESP 18
[2018-11-09] MEDS: SENNA/DOCUSATE NA (8.6MG/50MG) TAB PO SCH (21:00)
[2018-11-09] MEDS ORDERED: AMPICILLIN 1 GM/NS (PMX) 50 ML IVPB SCH (22:00)
[2018-11-10] VITALS: BP 130/66; PULSE 74; RESP 18
[2018-11-10] MEDS: IBUPROFEN 600 MG TAB PO SCH ×5 (00:09→23:53)
[2018-11-10] MEDS: LANOLIN HPA 1 PKT TOP PRN ×2 (00:09→18:51)
[2018-11-10 03:54] VITALS: BP 126/59; PULSE 72; RESP 18
[2018-11-10 08:00] VITALS: BP 123/77; PULSE 68; RESP 16
[2018-11-10] MEDS: SENNA/DOCUSATE NA (8.6MG/50MG) TAB PO SCH ×2 (09:28→21:05)
[2018-11-10 12:45] VITALS: BP 121/70; PULSE 65; RESP 18
--- NOTE | 2018-11-10 13:44 | PN ---
Date/Time of Note Date/Time of Note DATE: 11/10/18 TIME: 13:41 OB Subjective Subjective Subjective Patient breast-feeding. Ambulating. Urinated. Reports decreased bleeding. Denies any shortness of breath or chest pain. Denies any dizziness or lightheadedness. OB Objective Objective Objective General appearance: Alert and oriented x4 does not appear to be in any acute distress Abdomen: Soft, nontender. Fundus palpable below the umbilicus at 3 cm Extremities: No calf tenderness, no click 2+ bilateral symmetric edema no cord palpable Breast: No evidence of mastitis or fissure VS - Last 72 Hours, by Label Date Temp Pulse Resp B/P (MAP) Pulse Ox O2 O2 Flow FiO2 Time Delivery Rate 11/10/18 98.3 68 16 123/77 Room Air 08:00 (92) 11/10/18 98.4 72 18 126/59 Room Air 03:54 (81) 11/10/18 98.5 74 18 130/66 Room Air 00:00 (87) 11/09/18 98.0 83 18 134/65 Room Air 20:40 (88) 11/09/18 93 19 136/65 Room Air 19:10 (88) 11/09/18 85 19 128/59 Room Air 18:55 (82) 11/09/18 98.4 84 18 128/60 Room Air 18:40 (82) 11/09/18 97.6 79 17 157/91 Room Air 04:16 (113) Laboratory Tests Test 11/10/18 06:29 11/10/18 06:44 Lab Scanned Report REFERENCE LAB White Blood Count 11.4 H Red Blood Count 3.36 L Hemoglobin 7.8 L Hematocrit 24.9 L Mean Corpuscular Volume 74.1 L Mean Corpuscular Hemoglobin 23.2 L Mean Corpuscular Hemoglobin Concent 31.3 L Red Cell Distribution Width 17.2 H Platelet Count 189 # Mean Platelet Volume 12.6 H Immature Granulocytes % 0.400 Neutrophils % 78.0 H Lymphocytes % 14.3 L Monocytes % 5.9 Eosinophils % 0.8 Basophils % 0.6 Nucleated Red Blood Cells % 0.0 Immature Granulocytes # 0.040 H Neutrophils # 8.9 H Lymphocytes # 1.6 Monocytes # 0.7 Eosinophils # 0.1 Basophils # 0.1 Nucleated Red Blood Cells # 0.0 OB Assessment/Plan Other Assessment: day #1 Status post Acute on chronic anemia Patient is asymptomatic She ambulate without any symptom Continue routine care Iron twice a day with stool softener MISAEL AGUILAR MD Nov 10, 2018 13:44
[2018-11-10] MEDS ORDERED: POLYSACCHARIDE IRON COMPLEX CAP PO SCH (14:00)
[2018-11-10] MEDS: FERROUS SULFATE (EC) 325 MG TAB PO SCH ×2 (14:11→21:05)
[2018-11-10] MEDS: DOCUSATE SODIUM 100 MG CAP PO SCH ×2 (14:14→21:05)
[2018-11-10 15:50] VITALS: BP 120/65; PULSE 76; RESP 18
[2018-11-10 19:45] VITALS: BP 138/77; PULSE 86; RESP 18
[2018-11-10] MEDS ORDERED: DOCUSATE SODIUM 100 MG CAP PO SCH (21:00)
[2018-11-11 04:04] VITALS: BP 127/65; PULSE 72; RESP 18
[2018-11-11] MEDS: IBUPROFEN 600 MG TAB PO SCH ×2 (05:47→11:35)
[2018-11-11 08:18] VITALS: BP 100/60; PULSE 69; RESP 18
[2018-11-11] MEDS: SENNA/DOCUSATE NA (8.6MG/50MG) TAB PO SCH (09:00)
[2018-11-11] MEDS ORDERED: DIPHTH/TET/ACEL PERTUSS (ADULT) 0.5 ML VIAL IM* ONE (09:00)
[2018-11-11] MEDS: DOCUSATE SODIUM 100 MG CAP PO SCH (09:00)
--- NOTE | 2018-11-11 11:21 | DS ---
Date/Time of Note Date/Time of Note DATE: 11/11/18 TIME: 11:21 Discharge Summary Admission/Discharge Info Admit Date/Time Nov 09, 2018 at 04:35 Discharge Date/Time 11/11/2018 Discharge Diagnosis Patient Condition: Good Hospital Course uneventful Home Meds Reported Medications [id number] ( 19) 1 Each Tablet, 1 TAB PO DAILY, TAB 09/26/18 Primary Care Provider Not On Staff Doctor Pending Labs Laboratory Tests Test 11/11/18 06:38 White Blood Count 9.9 10^3/ul (4.8-10.8) Red Blood Count 3.49 10^6/ul (4.20-5.40) Hemoglobin 8.2 g/dl (12.0-16.0) Hematocrit 26.2 % (37.0-47.0) Mean Corpuscular Volume 75.1 fl (82.0-101.0) Mean Corpuscular Hemoglobin 23.5 pg (29.0-33.0) Mean Corpuscular Hemoglobin Concent 31.3 g/dl (32.0-37.0) Red Cell Distribution Width 17.3 % (11.5-14.5) Platelet Count 229 10^3/UL (140-415) Mean Platelet Volume 12.7 fl (7.4-10.4) Immature Granulocytes % 0.700 % (0.001-0.429) Neutrophils % 71.0 % (39.0-77.0) Lymphocytes % 20.2 % (15.0-51.0) Monocytes % 5.4 % (0.0-11.0) Eosinophils % 1.7 % (0.0-7.0) Basophils % 1.0 % (0.0-2.0) Nucleated Red Blood Cells % 0.0 /100WBC (0.0-0.0) Immature Granulocytes # 0.070 10^3/ul (0.0-0.031) Neutrophils # 7.0 10^3/ul (1.6-7.5) Lymphocytes # 2.0 10^3/ul (0.8-2.9) Monocytes # 0.5 10^3/ul (0.3-0.9) Eosinophils # 0.2 10^3/ul (0.0-0.5) Basophils # 0.1 10^3/ul (0.0-0.1) Nucleated Red Blood Cells # 0.0 10^3/ul (0.0-0.0) OSCAR MERINO M.D. Nov 11, 2018 11:21
--- NOTE | 2018-11-11 11:23 | QN ---
Documentation Comment PPD#2 is stable afebrile tolerates diet No VB +BM +voids VS stable Gen NAD Abd soft NT ND Genitalia No blood at perineum --->Discharge Home OSCAR MERINO M.D. Nov 11, 2018 11:23
[2018-11-11] MEDS: FERROUS SULFATE (EC) 325 MG TAB PO SCH (11:35)
--- NOTE | 2018-11-12 13:56 | DELSUM ---
Delivery Summary A-C Datetime Report Generated by CPN: 11/12/2018 13:55 DELIVERY PERSONNEL Chip Separator: Ordona, May MATERNAL INFORMATION Delivery Anesthesia: Epidural Medications in Delivery: LR WITH PITOCIN 30 UNITS Delivery QBL (ml): 100 Placenta Cultured: No Maternal Complications: None LABOR SUMMARY EDC: 11/28/2018 00:00 No. Babies in Womb: 1 Attempted: No Labor Anesthesia: Epidural LABOR INFORMATION Reason for Induction: Not Applicable Onset of Labor: 11/09/2018 03:20 Complete Dilatation: 11/09/2018 18:01 Oxytocin: Augmentation Group B Beta Strep: Negative Antibiotics # of Doses: 1 Antibiotics Time of Last Dose: 11/09/2018 17:50 Steroids Given: None Reason Steroids Not Administered: Not Applicable MEMBRANES Membranes Rupture Method: Spontaneous Rupture of Membranes: 11/09/2018 03:20 Length of Rupture (hr): 14.98 Amniotic Fluid Color: Light Meconium Amniotic Fluid Amount: Moderate Amniotic Fluid Odor: Normal STAGES OF LABOR Stage 1 hr: 14 Stage 1 min: 41 Stage 2 hr: 0 Stage 2 min: 18 Stage 3 hr: 0 Stage 3 min: 4 Total Time in Labor hr: 15 Total Time in Labor min: 3 VAGINAL DELIVERY Episiotomy: None Laceration Extension: First Degree Laceration Type: Perineal Other Laceration: N/A Laceration Repair: Yes Initial Vag Sponge Count: 10 Final Vag Sponge Count: 10 Initial Vag Sharps Count: 1 Final Vag Sharps Count: 1 Sponge Count Correct: Yes; Vaginal Sweep Performed Sharps Count Correct: Yes BABY A INFORMATION Infant Delivery Date/Time: 11/09/2018 18:19 Method of Delivery: Vaginal Born in Route : No : N/A Forceps: N/A Vacuum Extraction: N/A Shoulder Dystocia : No SHOULDER DYSTOCIA BABY A Infant Delivery Date/Time: 11/09/2018 18:19 PRESENTATION/POSITION BABY A Presentation: Cephalic Cephalic Presentation: Vertex Vertex Position: Left Occipital Anterior Breech Presentation: N/A PLACENTA INFORMATION BABY A Placenta Delivery Time : 11/09/2018 18:23 Placenta Method of Delivery: Spontaneous Placenta Status: Delivered SCORES BABY A Heart Rate 1 min: >100 bpm Resp Effort 1 min: Good Cry Reflex Irritability 1 min: Cough/Sneeze/Pulls Away Muscle Tone 1 min: Active Motion Color 1 min: Blue/Pale Resuscitation Effort 1 min: Tactile Stimulation SCORE 1 MIN: 8 Heart Rate 5 min: >100 bpm Resp Effort 5 min: Good Cry Reflex Irritability 5 min: Cough/Sneeze/Pulls Away Muscle Tone 5 min: Active Motion Color 5 min: Body [place], Extremit Blue SCORE 5 MIN: 9 INFANT INFORMATION BABY A Gestational Age at Delivery: 37.2 Gestational Status: Early Term- 37- 38.6 Weeks Infant Outcome : Liveborn Condition : Stable Infant Sex: Male IDENTIFICATION/MEDS BABY A ID Band Number: [id number] ID Band Location: Right Leg; Left Arm Sensor Applied: Yes Sensor Number: [id number] Sensor Location : Cord Clamp Vitamin K Given : Not Given Erythromycin Given: Not Given WEIGHT/LENGTH BABY A Infant Birthweight (gm): 2890 Weight (lb): 6 Infant Weight (oz): 6 Infant Length (in): 18.50 Infant Length (cm): 46.99 CORD INFORMATION BABY A No. Cord Vessels: 1 Nuchal Cord : Around Neck x1, Tight Cord Blood Taken: Yes Infant Suction: Mouth; Nose ASSESSMENT BABY A Complications: None Physical Findings at Delivery: Within Normal Limits Respirations: Appears Normal Tank Driver/ALS Called : No Care By: TORIN AND MARYBETH Transferred To: Remains with Mother
== END 2018-11-11 12:46 | disposition home or self-care (01) | DRG 807 ==
LOC: OBT 04:06 → L-D 04:06 → OBT 04:35 → L-D 04:35 → PP1 20:41
PROVIDERS: ADMIT Obstetrics & Gynecology; ATTEND Obstetrics & Gynecology
PROC: 10E0XZZ Delivery of Products of Conception, External Approach (ICD-10-PCS; principal; 2018-11-09)
PROC: 0HQ9XZZ Repair Perineum Skin, External Approach (ICD-10-PCS; 2018-11-09)
DX: O77.0 Labor and delivery complicated by meconium in amniotic fluid (principal); Z37.0 Single live birth; O69.81X0 Labor and delivery complicated by cord around neck, without compression, not applicable or unspecified; O70.9 Perineal laceration during delivery, unspecified; O99.02 Anemia complicating childbirth; D64.9 Anemia, unspecified; Z3A.37 37 weeks gestation of pregnancy
CPT/HCPCS: 62322; 76815; 80053; 81003; 84560; 85025; 85610; 85730; 86592; 86850; 86900; 86901; 87086; 87340; 99464; G0463; J0290; J2590; J3010; J3105; J7120

== ENCOUNTER 2019-04-01 11:34 | Day surgery (SDC) | payer OTHER ==
[2019-04-01] VITALS (16 sets, daily range): BP systolic 104–131; BP diastolic 57–79; PULSE 64–94; RESP 15–18; Ht 152.4 cm; Wt 73.4 kg
[~2019-04-01] VITALS: Ht 152.4 cm; Wt 73.4 kg
[~2019-04-01 11:34] MED LIST changes: +CEPH-443 PO; +HYDR-4011 PO; +IBUP-1542 PO; +ONDA8TAB14 PO; -PNV11TAB PO
[2019-04-01] MEDS ORDERED: BUPIVACAINE 0.25%/EPI (MDV) 50 ML VIAL INJ ONE (13:46)
[2019-04-01] MEDS ORDERED: CEFAZOLIN 2 GM/50 ML (PMX) 50 ML IVPB SCH (14:00)
[2019-04-01] MEDS ORDERED: SEVOFLURANE 15 MIN ONE (14:02)
[2019-04-01] MEDS ORDERED: MIDAZOLAM 1 MG/ML 2 ML INJ ONE (14:03)
[2019-04-01] MEDS ORDERED: CEFAZOLIN 1 GM INJ ONE (14:59)
[2019-04-01] MEDS ORDERED: PROPOFOL 20 ML ONE (14:59)
[2019-04-01] MEDS ORDERED: LIDOCAINE 2% (SDV) 5 ML INJ ONE (14:59)
[2019-04-01] MEDS ORDERED: GLYCOPYRROLATE 0.4 MG INJ ONE (14:59)
[2019-04-01] MEDS ORDERED: NEOSTIGMINE 3 MG/3 ML SYRINGE ONE (14:59)
[2019-04-01] MEDS ORDERED: ROCURONIUM 50 MG INJ ONE (14:59)
[2019-04-01] MEDS ORDERED: ONDANSETRON 4 MG INJ ONE (15:00)
[2019-04-01] MEDS ORDERED: SOD CHLORIDE 0.9% 1,000 ML IV SCH (15:00)
[2019-04-01] MEDS ORDERED: ROPIVACAINE 0.5 % 30 ML VIAL ONE (15:02)
[2019-04-01] MEDS ORDERED: SUGAMMADEX SODIUM 200 MG/2 ML VIAL IV ONE (15:24)
[2019-04-01] MEDS ORDERED: ONDANSETRON 4 MG INJ IV PRN ×2 (15:30→16:00)
[2019-04-01] MEDS ORDERED: HYDROCODONE/APAP (5/325) TAB PO PRN ×2 (15:30)
[2019-04-01] MEDS ORDERED: KETOROLAC 30 MG INJ IV PRN ×2 (15:30→16:00)
[2019-04-01] MEDS ORDERED: IBUPROFEN 600 MG TAB PO PRN (15:30)
[2019-04-01] MEDS ORDERED: morphine 2 MG INJ IV PRN (15:30)
[2019-04-01] MEDS ORDERED: HYDROmorphONE 1 MG/5 ML IV SYRINGE IV ONE (15:44)
[2019-04-01] MEDS ORDERED: MEPERIDINE 25 MG INJ ONE (15:44)
[2019-04-01] MEDS: HYDROmorphONE 1 MG/5 ML IV SYRINGE IV PRN ×2 (15:53→15:58)
[2019-04-01] MEDS ORDERED: METOCLOPRAMIDE 10 MG INJ IV PRN (16:00)
[2019-04-01] MEDS ORDERED: HYDROmorphONE 1 MG/5 ML IV SYRINGE IV PRN (16:00)
[2019-04-01] MEDS ORDERED: DIPHENHYDRAMINE 50 MG INJ IV PRN (16:00)
[2019-04-01] MEDS ORDERED: MEPERIDINE 25 MG INJ IV PRN (16:00)
[2019-04-01] MEDS ORDERED: OXYCODONE/ACETAMINOPHEN (5/325) TAB PO PRN ×2 (16:00)
[2019-04-01] MEDS ORDERED: FENTAnyl 50 MCG/ML VIAL IV PRN (16:00)
== END 2019-04-01 17:13 | disposition home or self-care (01) ==
LOC: SDS 11:34
PROVIDERS: ATTEND Surgery
DX: K80.10 Calculus of gallbladder with chronic cholecystitis without obstruction (principal); E66.2 Morbid (severe) obesity with alveolar hypoventilation; Z68.31 Body mass index [BMI] 31.0-31.9, adult
CPT/HCPCS: 47562; 84703; 88304; J0690; J1170; J1885; J2175; J2250; J2405; J2710; J2765; J2795; J3010; Z7610